=== PATIENT | female | born 1930 ===

== ENCOUNTER 2018-01-01 06:14 | Emergency (ER) | payer MEDICARE, MEDICAID ==
[~2018-01-01] VITALS: Ht 157.5 cm; Wt 60.3 kg
--- NOTE | 2018-01-01 06:34 | NUR ---
Pt BIB [facility], reports pt fell (mechanical) at home, struck face. Pt c/o right eyebrow pain with 1-2cm lac, and small lip lac. Pt also c/o ongoing left knee pain. PERRLA. Pt denies CP, SOB, dizziness, LOCKETT n/v, no other complaints, no distress noted.
[2018-01-01] MEDS ORDERED: LIDOCAINE HCL 1% 20 ML VIAL ONE (07:00)
--- NOTE | 2018-01-01 07:10 | NUR ---
Recieved Pt in bed, awake a/o but forgetful. Upper lip x2 lac and RT forhead lac.
--- NOTE | 2018-01-01 08:20 | NUR ---
ER MD used multiple suture for pt's lip and forhead, no acute bleeing noted. Pt's daughter at the bedside. Pt tolorated well.
--- NOTE | 2018-01-01 08:38 | NUR ---
Pt out of ER for CT.
--- NOTE | 2018-01-01 08:50 | NUR ---
Pt back from CT, daughter at the bedside.
[2018-01-01 09:07] VITALS: BP 131/77
--- NOTE | 2018-01-01 09:37 | NUR ---
Patient discharged to home in stable conditon. Written and verbal after care instructions given. Patient verbalizes understanding of instructions. Pt left Er accompained by family.
== END 2018-01-01 09:38 | disposition home or self-care (01) ==
LOC: ER 06:14
DX: S01.511A Laceration without foreign body of lip, initial encounter (principal); S01.111A Laceration without foreign body of right eyelid and periocular area, initial encounter; G89.29 Other chronic pain; I10 Essential (primary) hypertension; E10.9 Type 1 diabetes mellitus without complications; Z79.4 Long term (current) use of insulin; W18.30XA Fall on same level, unspecified, initial encounter; Y93.89 Activity, other specified; Y92.89 Other specified places as the place of occurrence of the external cause; Y99.8 Other external cause status
CPT/HCPCS: 70450; A4663; J3490